=== PATIENT | female | born 1955 | race Caucasian/White ===

== ENCOUNTER 2021-07-25 00:10 | Observation (INO) | payer OTHER ==
[~2021-07-25] VITALS: Ht 175.3 cm; Wt 103.4 kg
[2021-07-25] MEDS ORDERED: ADVAIR 250-501 EACH INH (03:14)
[2021-07-25] MEDS ORDERED: OXYCODONE HCL5 M1 PO (03:14)
[2021-07-25] MEDS ORDERED: AMLODIPINE BES2.5 MG PO (03:14)
[2021-07-25] MEDS ORDERED: GABAPENTIN300 MG PO (03:14)
[2021-07-25] MEDS ORDERED: PAROXETINE HCL20 MG PO (03:15)
[2021-07-25] MEDS ORDERED: BANOPHEN25 MG PO (03:15)
[2021-07-25] MEDS ORDERED: FUROSEMIDE40 MG PO (03:15)
[2021-07-25] MEDS ORDERED: POTASSIUM CHLO10 ME1 PO (03:16)
[2021-07-25] MEDS ORDERED: FLONASE 0.05% N16 GM (03:16)
[2021-07-25] MEDS ORDERED: MIRALAX17 GM PO (03:17)
--- NOTE | 2021-07-25 04:11 | NUR ---
informed of abnormal EKG reading at this time.
[2021-07-25 11:29] LABS: HEMOGLOBIN 10.1 gm/dl (12.3-15.3); RED BLOOD COUNT 3.61 M/UL (4.00-5.10); WHITE BLOOD COUNT 8.5 K/UL (4.5-11.0)
[2021-07-26 03:20] LABS: HEMOGLOBIN 9.9 gm/dl (12.3-15.3); RED BLOOD COUNT 3.75 M/UL (4.00-5.10)
[2021-07-27 03:03] LABS: RED BLOOD COUNT 3.63 M/UL (4.00-5.10); WHITE BLOOD COUNT 9.3 K/UL (4.5-11.0)
[2021-07-27] MEDS ORDERED: LOPRESSOR 25 MG25 MG PO (14:41)
[2021-07-27] MEDS ORDERED: ATORVASTATIN CA20 MG PO (14:41)
[2021-07-27] MEDS ORDERED: ISOSORBIDE MONO30 MG PO (14:41)
[2021-07-27] MEDS ORDERED: ASPIRIN EC81 MG PO (14:41)
== END 2021-07-27 16:54 | disposition home or self-care (01) ==
LOC: PROG CARE 00:10
PROVIDERS: Internal Medicine; Internal Medicine Cardiovascular Disease; ADMIT Internal Medicine
DX: I25.110 Atherosclerotic heart disease of native coronary artery with unstable angina pectoris (principal); I25.82 Chronic total occlusion of coronary artery; C55 Malignant neoplasm of uterus, part unspecified; C77.9 Secondary and unspecified malignant neoplasm of lymph node, unspecified; D64.81 Anemia due to antineoplastic chemotherapy; I12.9 Hypertensive chronic kidney disease with stage 1 through stage 4 chronic kidney disease, or unspecified chronic kidney disease; E11.22 Type 2 diabetes mellitus with diabetic chronic kidney disease; N18.30 Chronic kidney disease, stage 3 unspecified; I25.119 Atherosclerotic heart disease of native coronary artery with unspecified angina pectoris; G89.29 Other chronic pain; F11.90 Opioid use, unspecified, uncomplicated; F41.9 Anxiety disorder, unspecified; F32.A Depression, unspecified; E66.9 Obesity, unspecified; F17.200 Nicotine dependence, unspecified, uncomplicated; Z79.82 Long term (current) use of aspirin; Z79.899 Other long term (current) drug therapy; Z90.710 Acquired absence of both cervix and uterus; Z92.21 Personal history of antineoplastic chemotherapy; Z82.49 Family history of ischemic heart disease and other diseases of the circulatory system; Z90.49 Acquired absence of other specified parts of digestive tract; Z98.51 Tubal ligation status
CPT/HCPCS: ECHO; 36415; 71045; 78452; 80048; 80053; 80061; 80307; 82550; 82553; 82607; 82746; 83036; 83735; 84439; 84443; 84484; 84550; 85025; 85027; 85045; 85347; 86140; 87040; 93005; 93017; 93306; 96372; 96374; 96375; 96376; 99152; 99153; A9502; C1725; C1769; C1887; C1894; G0378; G0379; J0461; J1644; J1650; J2250; J2270; J2785; J3010; J7040; Q9965; Q9967

== ENCOUNTER 2022-01-23 00:54 | Inpatient (IN) | payer MEDICARE, OTHER ==
[~2022-01-23] VITALS: Ht 175.3 cm; Wt 108.9 kg
[~2022-01-23 00:54] MED LIST: ADVAIR 250-501 EACH INH; AMLODIPINE BES2.5 MG PO; ASPIRIN EC81 MG PO; ATORVASTATIN CA20 MG PO; BANOPHEN25 MG PO; FLONASE 0.05% N16 GM; FUROSEMIDE20 MG PO; GABAPENTIN300 MG PO; ISOSORBIDE MONO30 MG PO; LOPRESSOR 25 MG25 MG PO; MIRALAX17 GM PO; PAROXETINE HCL20 MG PO; PERCOCET 5-3251 EACH PO; POTASSIUM CHLO20 ME2 PO
[2022-01-23 06:24] LABS: HEMOGLOBIN 9.9 gm/dl (12.3-15.3); RED BLOOD COUNT 3.39 M/UL (4.00-5.10); WHITE BLOOD COUNT 9.1 K/UL (4.5-11.0)
[2022-01-23] MEDS ORDERED: RANEXA500 MG PO (11:50)
[2022-01-23] MEDS ORDERED: FERROUS SULFAT325 M2 PO (11:51)
[2022-01-23] MEDS ORDERED: METOPROLOL TART25 MG PO (11:52)
[2022-01-23] MEDS ORDERED: NITROSTAT0.3 MG SL (11:56)
[2022-01-23] MEDS ORDERED: VITAMIN D3250 MC2 PO (11:57)
--- NOTE | 2022-01-24 09:37 | NUR ---
pt off unit for surgery.
--- NOTE | 2022-01-24 17:17 | NUR ---
PT ASSISTED TO BEDISDE PER PHYSICAL THERAPY, PT BECAME DIZZY IMMEDIATLEY AND BLOOD PRESSURE DROPPED. ASSISTED BACK TO BED AND RECOVERED QUICKLY.
[2022-01-25 06:21] LABS: HEMOGLOBIN 7.9 gm/dl (12.3-15.3); WHITE BLOOD COUNT 10.2 K/UL (4.5-11.0)
[2022-01-25 06:24] LABS: RED BLOOD COUNT 2.67 M/UL (4.00-5.10)
[2022-01-27 06:32] LABS: HEMOGLOBIN 7.7 gm/dl (12.3-15.3); RED BLOOD COUNT 2.58 M/UL (4.00-5.10); WHITE BLOOD COUNT 8.7 K/UL (4.5-11.0)
[2022-01-27 06:47] LABS: BUN/CREATININE RATIO 14 (0-10)
[2022-01-27] MEDS ORDERED: PERCOCET 5-3251 EACH PO (09:07)
[2022-01-27] MEDS ORDERED: GABAPENTIN300 MG PO (09:07)
[2022-01-27] MEDS ORDERED: ENOXAPARIN40 MG/0.4 SC (09:07)
[2022-01-27] MEDS ORDERED: LEVOFLOXACIN500 MG PO (09:08)
--- NOTE | 2022-01-27 12:10 | NUR ---
PATIENT IV INFILTRATED AND REMOVED, PATIENT STATED SHE HAS A PORT THAT SHE USES FOR CHEMOTHERAPY REGULARLY. IV/PICC LINE NURSE NOTIFIED AND PENDING PORT ACCESS FOR BLOOD TRANSFUSION.
--- NOTE | 2022-01-27 14:57 | NUR ---
REPORT CALLED TO [facility] WITH [facility].
--- NOTE | 2022-01-27 19:26 | NUR ---
REPORT CALLED TO [facility].
[2022-01-28 04:02] LABS: HEMOGLOBIN 8.7 gm/dl (12.3-15.3); RED BLOOD COUNT 2.95 M/UL (4.00-5.10); WHITE BLOOD COUNT 7.8 K/UL (4.5-11.0)
== END 2022-01-28 10:02 | DRG 481 ==
LOC: M/S 02:41
PROVIDERS: Internal Medicine; Orthopaedic Surgery; ADMIT Internal Medicine
PROC: 0QS606Z Reposition Right Upper Femur with Intramedullary Internal Fixation Device, Open Approach (ICD-10-PCS; principal; 2022-01-24 08:00)
PROC: 30233N1 Transfusion of Nonautologous Red Blood Cells into Peripheral Vein, Percutaneous Approach (ICD-10-PCS; 2022-01-27)
DX: S72.141A Displaced intertrochanteric fracture of right femur, initial encounter for closed fracture (principal); D62 Acute posthemorrhagic anemia; N39.0 Urinary tract infection, site not specified; I12.9 Hypertensive chronic kidney disease with stage 1 through stage 4 chronic kidney disease, or unspecified chronic kidney disease; Z96.0 Presence of urogenital implants; U07.0 Vaping-related disorder; Z20.822 Contact with and (suspected) exposure to COVID-19; W01.0XXA Fall on same level from slipping, tripping and stumbling without subsequent striking against object, initial encounter; E11.22 Type 2 diabetes mellitus with diabetic chronic kidney disease; I25.10 Atherosclerotic heart disease of native coronary artery without angina pectoris; N18.30 Chronic kidney disease, stage 3 unspecified; F32.A Depression, unspecified; Z92.29 Personal history of other drug therapy; Z87.442 Personal history of urinary calculi; Z90.710 Acquired absence of both cervix and uterus; Z85.89 Personal history of malignant neoplasm of other organs and systems; Z90.49 Acquired absence of other specified parts of digestive tract; Z90.89 Acquired absence of other organs; Z95.5 Presence of coronary angioplasty implant and graft; Z98.890 Other specified postprocedural states; Z82.49 Family history of ischemic heart disease and other diseases of the circulatory system; Z80.42 Family history of malignant neoplasm of prostate; Z80.0 Family history of malignant neoplasm of digestive organs; Z87.891 Personal history of nicotine dependence
CPT/HCPCS: 36415; 72170; 73502; 73552; 76000; 80048; 81001; 82962; 83036; 83540; 83550; 83735; 84484; 85018; 85025; 85027; 85610; 85730; 86850; 86900; 86901; 86920; 87086; 93005; 94760; 97110; 97116-GP-CQ; 97161; 97165; 97530; 97530-GP-CQ; 97535; C1713; J0690; J0696; J1170; J1650; J1756; J2001; J2270; J2405; J2704; J7040; P9016